=== PATIENT | female | born 1995 | race Caucasian/White ===

== ENCOUNTER 2020-01-22 18:23 | Emergency (ER) | payer OTHER ==
[~2020-01-22] VITALS: Ht 157.5 cm; Wt 54.5 kg
[2020-01-22] MEDS ORDERED: MIRT-89 PO (18:51)
[2020-01-22] MEDS ORDERED: BENZ2TAB10 PO (18:53)
[2020-01-22] MEDS ORDERED: LITH450CRT PO (18:53)
[2020-01-22 19:09] LABS: BASOPHILS % (AUTO) 1.5 % (0.0-2.0); EOSINOPHILS % (AUTO) 2.2 % (1.0-6.0); HEMATOCRIT 39.1 % (36-46); HEMOGLOBIN 13.2 g/dL (12.0-16.0); LYMPHOCYTES # (AUTO) 1.5 K/uL (1.0-4.8); LYMPHOCYTES % (AUTO) 26.2 % (22.0-44.0); MEAN CORPUSCULAR HEMOGLOBIN 28.9 pg (26.0-34.0); MEAN CORPUSCULAR HGB CONC 33.7 G/dL (31.0-37.0); MEAN CORPUSCULAR VOLUME 86 fL (80-100); MONOCYTES # (AUTO) 0.4 K/uL (0.1-1.0); MONOCYTES % (AUTO) 6.6 % (2.0-9.0); NEUTROPHILS # (AUTO) 3.6 K/uL (1.8-7.7); NEUTROPHILS % (AUTO) 63.5 % (40.0-70.0); PLATELET COUNT (AUTO) 206 K/uL (150-450); RED BLOOD CELL COUNT(AUTO) 4.56 MIL/uL (4.00-5.20); RED CELL DISTRIBUTION WIDTH 13.1 % (11.5-14.5)
[2020-01-22 20:47] VITALS: BP 120/70
[2020-01-22 21:37] LABS: ANION GAP 8 mmol/L (8-16); CALCIUM, TOTAL 9.5 mg/dL (8.8-10.5); CARBON DIOXIDE 25 mmol/L (22-29); CHLORIDE 104 mmol/L (98-107); CREATININE 0.82 mg/dL (0.60-1.30); GLOMERULAR FILTR. RATE CALC > 60 mL/min (>60); GLUCOSE,RANDOM 96 mg/dL (70-110); POTASSIUM 4.3 mmol/L (3.5-5.1); SODIUM SERUM 137 mmol/L (136-145); UREA NITROGEN, BLOOD 5 mg/dL (7-18)
[2020-01-22 21:48] LABS: ALANINE AMINOTRANSFERASE 18 U/L (12-78); ALBUMIN 4.2 g/dL (3.4-5.0); ALKALINE PHOSPHATASE 90 U/L (46-116); ASPARTATE AMINOTRANSFERASE 16 U/L (15-37); BILIRUBIN,TOTAL 0.2 mg/dL (0.1-1.0); HCG,QUANTITATIVE < 1 mIU/mL (0-6); TOTAL PROTEIN, SERUM 8.4 g/dL (6.4-8.2)
== END 2020-01-22 20:54 | disposition home or self-care (01) ==
LOC: EMS 18:23
DX: F43.0 Acute stress reaction (principal); F41.9 Anxiety disorder, unspecified; F32.9 Major depressive disorder, single episode, unspecified
CPT/HCPCS: 36415; 80053; 84702; 85025; 99284; G0480

== ENCOUNTER 2020-09-14 21:18 | Emergency (ER) | payer OTHER ==
[~2020-09-14] VITALS: Ht 157.5 cm; Wt 54.5 kg
[~2020-09-14 21:18] MED LIST: BENZ2TAB10 PO; LITH450CRT PO; MIRT-89 PO
[2020-09-14 21:30] VITALS: BP 146/74
[2020-09-14 22:11] LABS: BASOPHILS % (AUTO) 0.5 % (0.0-2.0); EOSINOPHILS % (AUTO) 0.3 % (1.0-6.0); HEMATOCRIT 41.2 % (36-46); HEMOGLOBIN 13.8 g/dL (12.0-16.0); LYMPHOCYTES % (AUTO) 16.2 % (22.0-44.0); MEAN CORPUSCULAR HEMOGLOBIN 28.8 pg (26.0-34.0); MEAN CORPUSCULAR HGB CONC 33.4 G/dL (31.0-37.0); MEAN CORPUSCULAR VOLUME 86 fL (80-100); MONOCYTES # (AUTO) 0.5 K/uL (0.1-1.0); MONOCYTES % (AUTO) 8.3 % (2.0-9.0); NEUTROPHILS # (AUTO) 4.5 K/uL (1.8-7.7); NEUTROPHILS % (AUTO) 74.7 % (40.0-70.0); PLATELET COUNT (AUTO) 181 K/uL (150-450); RED BLOOD CELL COUNT(AUTO) 4.78 MIL/uL (4.00-5.20); RED CELL DISTRIBUTION WIDTH 13.7 % (11.5-14.5)
[2020-09-14 22:22] LABS: ANION GAP 19 mmol/L (8-16); CALCIUM, TOTAL 9.5 mg/dL (8.8-10.5); CARBON DIOXIDE 18 mmol/L (22-29); CHLORIDE 101 mmol/L (98-107); CREATININE 0.92 mg/dL (0.60-1.30); GLOMERULAR FILTR. RATE CALC > 60 mL/min (>60); GLUCOSE,RANDOM 80 mg/dL (70-110); POTASSIUM 4.1 mmol/L (3.5-5.1); SODIUM SERUM 138 mmol/L (136-145); UREA NITROGEN, BLOOD 8 mg/dL (7-18)
[2020-09-14 22:36] LABS: ALANINE AMINOTRANSFERASE 19 U/L (12-78); ALBUMIN 4.6 g/dL (3.4-5.0); ALKALINE PHOSPHATASE 76 U/L (46-116); ASPARTATE AMINOTRANSFERASE 18 U/L (15-37); BILIRUBIN,TOTAL 0.7 mg/dL (0.1-1.0); HCG,QUANTITATIVE < 1 mIU/mL (0-6); TOTAL PROTEIN, SERUM 8.6 g/dL (6.4-8.2)
[2020-09-15] MEDS ORDERED: LORazepam 1 MG TABLET PO ONE (00:15)
== END 2020-09-15 00:51 | disposition home or self-care (01) ==
LOC: EMS 21:19
DX: F41.9 Anxiety disorder, unspecified (principal); F32.9 Major depressive disorder, single episode, unspecified; Z91.14 Patient's other noncompliance with medication regimen
CPT/HCPCS: 36415; 80053; 84702; 85025; 99283; G0480

== ENCOUNTER 2020-10-28 16:11 | Inpatient (IN) | payer MEDICAID, OTHER ==
[~2020-10-28] VITALS: Ht 157.5 cm; Wt 53.2 kg
[2020-10-28 16:53] LABS: BASOPHILS % (AUTO) 0.5 % (0.0-2.0); EOSINOPHILS % (AUTO) 1.5 % (1.0-6.0); HEMATOCRIT 34.9 % (36-46); HEMOGLOBIN 11.7 g/dL (12.0-16.0); LYMPHOCYTES # (AUTO) 1.1 K/uL (1.0-4.8); LYMPHOCYTES % (AUTO) 19.4 % (22.0-44.0); MEAN CORPUSCULAR HEMOGLOBIN 29.2 pg (26.0-34.0); MEAN CORPUSCULAR HGB CONC 33.5 G/dL (31.0-37.0); MEAN CORPUSCULAR VOLUME 87 fL (80-100); MONOCYTES # (AUTO) 0.4 K/uL (0.1-1.0); MONOCYTES % (AUTO) 7.6 % (2.0-9.0); PLATELET COUNT (AUTO) 185 K/uL (150-450); RED CELL DISTRIBUTION WIDTH 13.5 % (11.5-14.5)
[2020-10-28 17:09] LABS: ANION GAP 8 mmol/L (8-16); CALCIUM, TOTAL 8.5 mg/dL (8.8-10.5); CARBON DIOXIDE 28 mmol/L (22-29); CHLORIDE 106 mmol/L (98-107); CREATININE 0.77 mg/dL (0.60-1.30); GLOMERULAR FILTR. RATE CALC > 60 mL/min (>60); GLUCOSE,RANDOM 102 mg/dL (70-110); POTASSIUM 3.7 mmol/L (3.5-5.1); SODIUM SERUM 142 mmol/L (136-145); UREA NITROGEN, BLOOD 17 mg/dL (7-18)
[2020-10-28 17:15] LABS: COVID AG,FIA SOURCE NASOPHARYNGEAL
[2020-10-28 17:21] LABS: ALANINE AMINOTRANSFERASE 43 U/L (12-78); ALBUMIN 3.9 g/dL (3.4-5.0); ALKALINE PHOSPHATASE 86 U/L (46-116); ASPARTATE AMINOTRANSFERASE 23 U/L (15-37); BILIRUBIN,TOTAL 0.3 mg/dL (0.1-1.0); HCG,QUANTITATIVE < 1 mIU/mL (0-6); TOTAL PROTEIN, SERUM 7.6 g/dL (6.4-8.2)
[2020-10-28] MEDS ORDERED: ZOLPIDEM TARTRATE 10 MG TABLET PO PRN (20:00)
[2020-10-28] MEDS ORDERED: HALOPERIDOL 5 MG TABLET PO PRN (20:00)
[2020-10-28] MEDS ORDERED: LORazepam 2 MG TABLET PO PRN (20:00)
[2020-10-28 20:30] VITALS: BP 90/60
[2020-10-29] MEDS ORDERED: MAG HYDROX/AL HYDROX/SIMETH ES 30 ML SUSPENSION UDCUP PO PRN (06:30)
[2020-10-29] MEDS ORDERED: DOCUSATE SODIUM 100 MG CAPSULE PO PRN (06:30)
[2020-10-29] MEDS ORDERED: IBUPROFEN 400 MG TABLET PO PRN (06:30)
[2020-10-29] MEDS ORDERED: CloNIDine HCL 0.1 MG TABLET PO PRN (06:30)
[2020-10-29] MEDS ORDERED: NICOTINE 14 MG/24 HOUR PATCH TD PRN (06:30)
[2020-10-29] MEDS ORDERED: MAGNESIUM HYDROXIDE SUSPENSION 30 ML UDCUP PO PRN (06:30)
[2020-10-29] MEDS ORDERED: LOPERAMIDE HCL 2 MG CAPSULE PO PRN (06:30)
[2020-10-29] MEDS ORDERED: PETROLATUM,WHITE 28 GM JELLY TP PRN (06:30)
[2020-10-29] MEDS ORDERED: ONDANSETRON HCL 4 MG TABLET PO PRN (06:30)
[2020-10-29] MEDS ORDERED: GuaiFENesin/D-METHORPHAN [SUGAR-FREE] 200-20MG/10 ML SYRUP UDCUP PO PRN (06:30)
[2020-10-29] MEDS ORDERED: ACETAMINOPHEN 325 MG TABLET PO PRN (06:30)
[2020-10-29] MEDS ORDERED: ALBUTEROL SULFATE HFA 90 MCG/PUFF 8 GM INHALER IH PRN (06:30)
[2020-10-29 08:59] LABS: CHOL/HDL RATIO 3.1 (3.9-5.7)
[2020-10-29 10:25] VITALS: BP 102/59
[2020-10-29 16:00] VITALS: BP 90/59
[2020-10-29] MEDS: LITHIUM CARBONATE 300 MG CAPSULE PO SCH (16:32)
[2020-10-29] MEDS: MIRTAZAPINE 15 MG TABLET PO SCH (20:15)
[2020-10-30 08:20] VITALS: BP 100/63
[2020-10-30] MEDS: LITHIUM CARBONATE 300 MG CAPSULE PO SCH ×2 (08:41→17:40)
[2020-10-30 16:00] VITALS: BP 118/75
[2020-10-30] MEDS: MIRTAZAPINE 15 MG TABLET PO SCH (20:55)
[2020-10-31] MEDS: LITHIUM CARBONATE 300 MG CAPSULE PO SCH ×2 (08:44→17:24)
[2020-10-31 09:00] VITALS: BP 94/60
[2020-10-31 16:00] VITALS: BP 89/57
[2020-10-31] MEDS: MIRTAZAPINE 15 MG TABLET PO SCH (21:27)
[2020-11-01] MEDS: LITHIUM CARBONATE 300 MG CAPSULE PO SCH ×2 (08:03→17:41)
[2020-11-01 10:26] VITALS: BP 100/58
[2020-11-01] MEDS: BusPIRone HCL 5 MG TABLET PO SCH ×3 (12:35→21:13)
[2020-11-01 16:00] VITALS: BP 102/68
[2020-11-01] MEDS ORDERED: BusPIRone HCL 5 MG TABLET PO SCH (17:00)
[2020-11-01] MEDS: MIRTAZAPINE 15 MG TABLET PO SCH (21:13)
[2020-11-02] MEDS: LITHIUM CARBONATE 300 MG CAPSULE PO SCH (08:23)
[2020-11-02] MEDS: BusPIRone HCL 5 MG TABLET PO SCH ×3 (08:23→20:48)
[2020-11-02 10:24] VITALS: BP 103/69
[2020-11-02] MEDS ORDERED: PALIPERIDONE PALMITATE 234 MG/1.5 ML SYRINGE IM SCH (14:45)
[2020-11-02 16:22] VITALS: BP 95/68
[2020-11-02] MEDS: LITHIUM CARBONATE 300 MG TABLET PO SCH (17:31)
[2020-11-02] MEDS: MIRTAZAPINE 15 MG TABLET PO SCH (20:49)
[2020-11-03 09:09] VITALS: BP 95/58
[2020-11-03] MEDS: LITHIUM CARBONATE 300 MG TABLET PO SCH ×2 (09:24→17:41)
[2020-11-03] MEDS: BusPIRone HCL 5 MG TABLET PO SCH ×3 (09:25→21:40)
[2020-11-03 14:25] LABS: COVID AG,FIA SOURCE NASAL SWAB
[2020-11-03 16:00] VITALS: BP 92/57
[2020-11-03] MEDS: MIRTAZAPINE 15 MG TABLET PO SCH (21:40)
[2020-11-04 08:00] VITALS: BP 100/60
[2020-11-04] MEDS: BusPIRone HCL 5 MG TABLET PO SCH ×3 (09:30→20:02)
[2020-11-04] MEDS: LITHIUM CARBONATE 300 MG TABLET PO SCH ×2 (09:30→16:12)
[2020-11-04 16:19] VITALS: BP 99/65
[2020-11-04] MEDS: MIRTAZAPINE 15 MG TABLET PO SCH (20:02)
[2020-11-05 08:48] VITALS: BP 100/60
[2020-11-05] MEDS: LITHIUM CARBONATE 300 MG TABLET PO SCH (09:56)
[2020-11-05] MEDS: BusPIRone HCL 5 MG TABLET PO SCH ×2 (09:56→16:16)
[2020-11-05] MEDS ORDERED: LITH300T PO (12:57)
[2020-11-05] MEDS ORDERED: MIRT-89 PO (12:57)
[2020-11-05] MEDS ORDERED: BUSP5TAB20 PO (12:57)
[2020-11-05] MEDS ORDERED: PALI234D IM (13:16)
== END 2020-11-05 16:15 | disposition home or self-care (01) | DRG 751 ==
LOC: EMS 16:12 → 3EI 19:53
DX: F33.2 Major depressive disorder, recurrent severe without psychotic features (principal); R45.851 Suicidal ideations; D64.9 Anemia, unspecified; Z20.822 Contact with and (suspected) exposure to COVID-19; F41.9 Anxiety disorder, unspecified; Z59.0 Homelessness; Z79.899 Other long term (current) drug therapy; Z91.5 Personal history of self-harm
CPT/HCPCS: 80053; 80061; 80178; 84702; 85025; 87081; 99285; G0480